=== PATIENT | male | born 1980 | race Caucasian/White ===

== ENCOUNTER → 2018-06-05 | Outpatient (REF) | payer OTHER | LOC: M SMT 13:55 | DX: Z30.2 Encounter for sterilization (principal) ==

== ENCOUNTER → 2018-10-15 | Outpatient (REF) | payer OTHER ==
[~2018-10-15] MED LIST: TRAZ100T; TRAZ50TA; WELLBUTRIN
[2018-10-15 14:35] LABS: SEMEN APPEARANCE OPAQUE (OPAQUE); SEMEN VISCOSITY LIQUID (LIQUID); SEMEN VOLUME 4.4 ml (4.0-5.0)
[2018-10-15 14:36] LABS: SEMEN pH 8.5 (7.0-8.0); WBC CONCENTRATION >1 M/ml (<=1 M/ml)
== END ==
LOC: M SMT 13:20
PROVIDERS: ATTEND Urology
DX: Z98.52 Vasectomy status (principal)

== ENCOUNTER 2023-10-11 17:06 | Emergency (ER) | payer BC, OTHER ==
[~2023-10-11] VITALS: Ht 177.8 cm; Wt 75.5 kg
[2023-10-11] MEDS ORDERED: HYDR-3363 PO (19:30)
[2023-10-11 20:09] VITALS: BP 135/84; TEMP 97.8; O2SAT 99
== END 2023-10-11 20:12 | disposition home or self-care (01) ==
LOC: M ED 17:06
DX: F41.9 Anxiety disorder, unspecified (principal); F32.A Depression, unspecified; F17.200 Nicotine dependence, unspecified, uncomplicated; Z79.899 Other long term (current) drug therapy

== ENCOUNTER 2023-10-15 09:52 | Inpatient (IN) | payer BC ==
[~2023-10-15] VITALS: Ht 177.8 cm; Wt 70.5 kg
[~2023-10-15 09:52] MED LIST changes: +HYDR-3363 PO
[2023-10-15] MEDS: NS 1,000 ML IV ONE (12:10)
[2023-10-15 12:40] LABS: HEMATOCRIT 44.1 % (42.0-52.0); HEMOGLOBIN 15.2 g/dl (13.5-17.5); MEAN CORPUSCULAR HEMOGLOBIN 31.5 pg (27.0-33.0); MEAN CORPUSCULAR HGB CONC 34.5 g/dl (32.0-36.5); MEAN CORPUSCULAR VOLUME 91.3 fl (80.0-96.0); PLATELET COUNT, AUTOMATED 265 10^3/uL (150-450); RED BLOOD COUNT 4.83 10^6/uL (4.30-6.10)
[2023-10-15 13:05] LABS: ETHYL ALCOHOL (ETHANOL) < 0.003 % (0.000-0.010)
[2023-10-15 13:07] LABS: ALKALINE PHOSPHATASE 55 U/L (46-116); ALT/SGPT 16 U/L (7.0-40); AST/SGOT 17 U/L (<34); BILIRUBIN,DIRECT 0.1 MG/DL (<0.4); BILIRUBIN,TOTAL 0.3 MG/DL (0.3-1.2); BLOOD UREA NITROGEN 11 MG/DL (9-23); CALCIUM LEVEL 8.9 MG/DL (8.5-10.1); CARBON DIOXIDE LEVEL 25 MMOL/L (20-31); CHLORIDE LEVEL 108 MMOL/L (98-107); GLOMERULAR FILTRATION RATE > 60.0 (>60); GLUCOSE, FASTING 81 MG/DL (60-100); POTASSIUM SERUM 4.9 MMOL/L (3.5-5.1); SALICYLATE LEVEL < 3.0 MG/DL (<30); SODIUM LEVEL 139 MMOL/L (136-145); TOTAL PROTEIN 7.3 G/DL (5.7-8.2)
[2023-10-15 13:11] LABS: THYROID STIMULATING HORMONE 2.408 uIU/ML (0.55-4.78)
[2023-10-15] MEDS ORDERED: HYDR-3363 PO (13:42)
[2023-10-15] MEDS ORDERED: HOME MED LIST COMPLETE! XX SCH (13:45)
[2023-10-15 14:09] LABS: BARBITURATES URINE NEGATIVE (NEGATIVE); COCAINE METABOLITE URINE NEGATIVE (NEGATIVE); METHADONE URINE NEGATIVE (NEGATIVE); OPIATES URINE NEGATIVE (NEGATIVE); PHENCYCLIDINE URINE NEGATIVE (NEGATIVE)
[2023-10-15 14:10] LABS: AMPHETAMINES LEVEL URINE NEGATIVE (NEGATIVE); BENZODIAZEPINES URINE NEGATIVE (NEGATIVE); CANNABINOIDS URINE NEGATIVE (NEGATIVE)
[2023-10-15] MEDS ORDERED: MOM 30ML SUSPENSION UDC PO PRN (15:15)
[2023-10-15] MEDS ORDERED: ACETAMINOPHEN TAB 650MG DOSE (2X325MG) PO PRN (15:15)
[2023-10-15] MEDS ORDERED: diphenhydrAMINE 25MG CAP PO PRN (15:15)
[2023-10-15] MEDS ORDERED: IBUPROFEN 400MG TAB PO PRN (15:15)
[2023-10-15] MEDS ORDERED: traZODone 50 MG TAB PO PRN (15:15)
[2023-10-15] MEDS ORDERED: MAALOX 30 ML SUSP *UDC PO PRN (15:15)
[2023-10-15 16:25] VITALS: BP 133/83; TEMP 97.6; O2SAT 100
[2023-10-16 06:36] VITALS: BP 126/80; TEMP 98.7; O2SAT 98
[2023-10-16] MEDS: SERTRALINE HCL 50 MG TAB PO SCH (11:29)
[2023-10-16 17:10] VITALS: BP 139/82; TEMP 97.6; O2SAT 98
[2023-10-17 06:19] VITALS: BP 121/77; TEMP 98; O2SAT 98
[2023-10-17 18:15] VITALS: BP 131/86; TEMP 97.5
[2023-10-18 06:11] VITALS: BP 126/75; TEMP 98; O2SAT 99
[2023-10-18] MEDS ORDERED: SERT50TA29 PO (09:46)
== END 2023-10-18 10:20 | disposition home or self-care (01) | DRG 751 ==
LOC: M ED 09:52 → M ED INP 15:15 → M PSY 16:18
PROVIDERS: ADMIT Student in an Organized Health Care Education/Training Program; ATTEND Student in an Organized Health Care Education/Training Program
DX: F33.1 Major depressive disorder, recurrent, moderate (principal); F10.10 Alcohol abuse, uncomplicated; R45.851 Suicidal ideations; F41.9 Anxiety disorder, unspecified; F17.210 Nicotine dependence, cigarettes, uncomplicated; Z79.899 Other long term (current) drug therapy; Z20.822 Contact with and (suspected) exposure to COVID-19; Z63.0 Problems in relationship with spouse or partner

== ENCOUNTER → 2024-03-05 | Outpatient (CLI) | payer BC ==
[~2024-03-05] MED LIST changes: +SERT50TA29 PO
== END ==
LOC: M OUTALCOH 07:37
PROVIDERS: ATTEND Psychiatry & Neurology Psychiatry
DX: F10.20 Alcohol dependence, uncomplicated (principal)

== ENCOUNTER 2024-03-12 14:58 | Outpatient (RCR) | payer BC | END 2024-04-09 | LOC: M OUTALCOH 14:58 | PROVIDERS: ATTEND Psychiatry & Neurology Psychiatry | DX: F10.20 Alcohol dependence, uncomplicated (principal) ==